=== PATIENT | female | born 1970 | race Caucasian/White ===

== ENCOUNTER 2017-02-09 01:14 | Emergency (ER) | payer BC ==
[~2017-02-09] VITALS: Ht 162.6 cm; Wt 78.4 kg
[~2017-02-09 01:14] MED LIST: ATV5 PO; TRAZ50TA35 PO
[2017-02-09 01:23] VITALS: TEMP 36.4; Ht 162.6 cm; Wt 78.4 kg
[2017-02-09] MEDS ORDERED: ONDANSETRON INJ 2 MG/ML 2 ML VIAL IV STA ×2 (01:35→04:34)
[2017-02-09] MEDS ORDERED: MoRPHine SULFATE 10 MG/ML CARP/VIAL IV STA (01:35)
[2017-02-09] MEDS ORDERED: SODIUM CHLORIDE 0.9% 1000ML 1,000 ML IV ONE (01:45)
[2017-02-09 02:00] LABS: BASO % 0.3 %; BASO ABS # 0.02 K/uL (0-0.2); COMPLETE YES; EOS % 2.4 %; HEMATOCRIT 36.3 % (37-47); IG% 0.1 %; LYMPH % 24.7 %; LYMPH ABS # 1.72 K/uL (1.2-3.4); MEAN CELL VOLUME 88.5 fL (80-100); MEAN CORPUSCULAR HEMOGLOBIN 29.3 pg (25-34); MEAN CORPUSCULAR HGB CONC 33.1 g/dl (32-36); MEAN PLATELET VOLUME 8.8 fL (7.4-10.4); MONO % 7.9 %; NEUT % 64.6 %; PLATELET COUNT 261 K/uL (130-400); WHITE BLOOD COUNT 6.96 K/uL (4.8-10.8)
[2017-02-09] MEDS ORDERED: FENTANYL CITRATE INJ 50 MCG/1 ML 2 ML VIAL IV ONE ×2 (02:00→02:30)
[2017-02-09 02:17] LABS: BUN/CREATININE RATIO 15.1 (10-20); CREATININE 0.67 mg/dl (0.60-1.20); POTASSIUM 3.2 mmol/L (3.5-5.1)
[2017-02-09 02:20] LABS: ALB/GLOB RATIO 1.3 (0.9-2)
[2017-02-09 02:38] LABS: URINE APPEARANCE CLEAR (CLEAR); URINE BILIRUBIN NEG (NEG); URINE COLOR YELLOW; URINE EPITHELIAL CELL AUTO >30 /lpf (0-5); URINE NITRITE NEG (NEG); URINE PH 7.5 (4.5-7.5); URINE SPECIFIC GRAVITY 1.019 (1.000-1.030); UROBILINOGEN NEG (NEG); ZZUR CULT IF INDIC CLEAN CATCH YES
[2017-02-09 02:38] LABS: PREG INTERNAL NEGATIVE QC NEG CLEAR BACKGROUND; PREG INTERNAL POSITIVE QC POS CONTROL LINE
[2017-02-09 02:39] LABS: MANUAL MICROSCOPIC REQUIRED? NO; REVIEW REQ? YES
[2017-02-09] MEDS ORDERED: KETOROLAC TROMETHAMINE 30 MG/ML VIAL IV STA (02:43)
[2017-02-09] MEDS ORDERED: LORA-741 PO (02:49)
[2017-02-09] MEDS ORDERED: LORAZEPAM 2 MG/ML 1 ML VIAL IV STA (03:02)
[2017-02-09] MEDS ORDERED: HYDROmorphone INJ 0.5 MG/0.5 ML SYR IV STA (03:02)
[2017-02-09] MEDS ORDERED: ONDANSETRON INJ 2 MG/ML 2 ML VIAL ONE (04:49)
[2017-02-09] MEDS ORDERED: PROMETHAZINE HCL INJ 12.5 MG in SODIUM CHLORIDE 0.9% 50ML 50 ML IV STA (06:19)
--- NOTE | 2017-02-09 06:43 | EMERGENCY ROOM VISIT NOTE ---
History First contact with patient: 01:32 Chief Complaint: ABDOMINAL PAIN Stated Complaint: PAIN Nursing Triage Summary: Pt reports that at 2300 she developed severe right lower quadrant abdominal pain. Pain worsened and radiates into right back. Upon arrival to room to moaning in pain and thrashing in bed. Pt diaphoretic and clutching right abdomen. History of Present Illness The patient is a 47 year old female who presents to the Emergency Room with complaints of severe right flank pain that began approximately 2 and half hours prior to arrival. The patient states that the pain radiates from her back into her right lower quadrant. She is nauseated without vomiting. She has not had fever or chills. No recent travel history. The patient considers herself usually healthy without symptoms of this in the past. She has been eating, drinking, and using the bathroom is normal. She denies chance of . Review of Systems More than 10 systems were reviewed and otherwise negative with the exception of history of present illness. Past Medical/Surgical History No chronic medical disease Family History No pertinent family history Social History Smoking Status: Former Smoker Housing Status: lives with family Current/Historical Medications Scheduled PRN Lorazepam (Ativan), 0.5 MG PO Q6H PRN for Anxiety Allergies Coded Allergies: Kiwi (Verified Allergy, Mild, HIVES, 02/09/17) Physical Exam Vital Signs Date Time Temp Pulse Resp B/P (MAP) Pulse Ox O2 Delivery O2 Flow Rate FiO2 02/09/17 06:46 77 20 126/73 95 Room Air 02/09/17 06:46 57 18 126/73 97 Room Air 02/09/17 04:20 72 20 126/83 93 Room Air 02/09/17 03:09 64 22 163/95 98 Room Air 02/09/17 02:28 65 18 118/105 100 Room Air 02/09/17 01:23 36.4 69 19 158/82 96 Room Air Physical Exam VITALS: Vitals are noted on the nurse's note and reviewed by myself. Vital signs stable. GENERAL: White female who appears in severe discomfort. She is pacing in the emergency department room HEAD: Normocephalic atraumatic. HEART: Regular rate and rhythm without murmurs gallops or rubs. LUNGS: Clear to auscultation bilaterally without wheezes, rales or rhonchi. No retractions or accessory muscle use. ABDOMEN: Positive normal bowel sounds x 4. Soft, nontender, without masses or organomegaly. No guarding or rebound tenderness. No CVA tenderness. MUSCULOSKELETAL: No muscle atrophy, erythema, or edema noted. Full range of motion without joint tenderness in all extremities. Medical Decision & Procedures ER Provider Diagnostic Interpretation: Preliminary Findings Only See Final Report For Complete Findings US PELVIC/ENDOVAG: Correlate with the earlier noncontrast CT. Assuming negative test. Suspected bicornuate uterus. The endometrium in the right horn appears complex with internal fluid/heterogeneity, measuring up to 1 cm. Recommend followup after menses. The right and left ovaries are symmetric in appearance with internal vascular flow. No adnexal cysts or masses. Trace amount of free fluid in cul-de-sac may be physiologic. Preliminary Findings Only See Final Report For Complete Findings CT ABDOMEN & PELVIS: Small fat-containing abdominal wall hernia immediately superior to the umbilicus with mild fat stranding. Fat strangulation is a consideration. No bowel involvement. No urolithiasis. No hydronephrosis. Appendix is normal. Small amount of free fluid in the pelvis, likely physiologic. No free air. No evidence of bowel obstruction. Gallbladder is surgically absent. Liver, pancreas, spleen, and adrenals are unremarkable on noncontrast exam. Mild generalized mesenteric fat stranding. Nonspecific but can be seen with mesenteric panniculitis. Scattered bibasilar atelectasis. Laboratory Results 02/09/17 01:50 Red Blood Count 4.10, Mean Corpuscular Volume 88.5, Mean Corpuscular Hemoglobin 29.3, Mean Corpuscular Hemoglobin Concent 33.1, Mean Platelet Volume 8.8, Neutrophils (%) (Auto) 64.6, Lymphocytes (%) (Auto) 24.7, Monocytes (%) (Auto) 7.9, Eosinophils (%) (Auto) 2.4, Basophils (%) (Auto) 0.3, Neutrophils # (Auto) 4.49, Lymphocytes # (Auto) 1.72, Monocytes # (Auto) 0.55, Eosinophils # (Auto) 0.17, Basophils # (Auto) 0.02 02/09/17 01:50 Test 02/09/17 01:50 02/09/17 02:15 02/09/17 04:06 White Blood Count 6.96 K/uL (4.8-10.8) Red Blood Count 4.10 M/uL (4.2-5.4) Hemoglobin 12.0 g/dL (12.0-16.0) Hematocrit 36.3 % (37-47) Mean Corpuscular Volume 88.5 fL (80-100) Mean Corpuscular Hemoglobin 29.3 pg (25-34) Mean Corpuscular Hemoglobin Concent 33.1 g/dl (32-36) Platelet Count 261 K/uL (130-400) Mean Platelet Volume 8.8 fL (7.4-10.4) Neutrophils (%) (Auto) 64.6 % Lymphocytes (%) (Auto) 24.7 % Monocytes (%) (Auto) 7.9 % Eosinophils (%) (Auto) 2.4 % Basophils (%) (Auto) 0.3 % Neutrophils # (Auto) 4.49 K/uL (1.4-6.5) Lymphocytes # (Auto) 1.72 K/uL (1.2-3.4) Monocytes # (Auto) 0.55 K/uL (0.11-0.59) Eosinophils # (Auto) 0.17 K/uL (0-0.5) Basophils # (Auto) 0.02 K/uL (0-0.2) RDW Standard Deviation 40.2 fL (36.4-46.3) RDW Coefficient of Variation 12.5 % (11.5-14.5) Immature Granulocyte % (Auto) 0.1 % Immature Granulocyte # (Auto) 0.01 K/uL (0.00-0.02) Anion Gap 9.0 mmol/L (3-11) Est Creatinine Clear Calc Drug Dose 107.5 ml/min Estimated GFR () 123.0 Estimated GFR (Non- 106.2 BUN/Creatinine Ratio 15.1 (10-20) Calcium Level 8.0 mg/dl (8.5-10.1) Total Bilirubin 0.2 mg/dl (0.2-1) Aspartate Amino Transf (AST/SGOT) 13 U/L (15-37) Alanine Aminotransferase (ALT/SGPT) 22 U/L (12-78) Alkaline Phosphatase 59 U/L (45-117) Total Protein 6.4 gm/dl (6.4-8.2) Albumin 3.6 gm/dl (3.4-5.0) Globulin 2.8 gm/dl (2.5-4.0) Albumin/Globulin Ratio 1.3 (0.9-2) Lipase 116 U/L (73-393) Human Chorionic Gonadotropin, Qual NEG (NEG) Urine Color YELLOW Urine Appearance CLEAR (CLEAR) Urine pH 7.5 (4.5-7.5) Urine Specific Athena 1.019 (1.000-1.030) Urine Protein NEG (NEG) Urine Glucose (UA) NEG (NEG) Urine Ketones NEG (NEG) Urine Occult Blood TRACE (NEG) Urine Nitrite NEG (NEG) Urine Bilirubin NEG (NEG) Urine Urobilinogen NEG (NEG) Urine Leukocyte Esterase TRACE (NEG) Urine WBC (Auto) 10-30 /hpf (0-5) Urine RBC (Auto) 0-4 /hpf (0-4) Urine Hyaline Casts (Auto) 0 /lpf (0-5) Urine Epithelial Cells (Auto) >30 /lpf (0-5) Urine Bacteria (Auto) 1+ (NEG) Urine Renal Epithelial Cells /lpf (0-5) Urine Sperm (Auto) Urine Test NEG (NEG) Lactic Acid Level 1.4 mmol/L (0.4-2.0) Medications Administered Medications (Trade) Dose Ordered Sig/Breezy Route Start Time Stop Time Status Last Admin Dose Admin Morphine Sulfate (MoRPHine SULFATE INJ) 8 mg NOW STAT IV 02/09/17 01:35 02/09/17 01:37 DC 02/09/17 01:40 8 MG Sodium Chloride 1,000 ml @ 999 mls/hr Q1H1M ONCE IV 02/09/17 01:45 02/09/17 02:45 DC 02/09/17 01:41 999 MLS/HR Ondansetron HCl (Zofran Inj) 4 mg NOW STAT IV 02/09/17 01:35 02/09/17 01:37 DC 02/09/17 01:41 4 MG Fentanyl Citrate (Fentanyl Inj) 50 mcg NOW ONCE IV 02/09/17 02:00 02/09/17 02:01 DC 02/09/17 01:58 50 MCG Fentanyl Citrate (Fentanyl Inj) 50 mcg NOW ONCE IV 02/09/17 02:30 02/09/17 02:31 DC 02/09/17 02:30 50 MCG Ketorolac Tromethamine (Toradol Inj) 30 mg NOW STAT IV 02/09/17 02:43 02/09/17 02:44 DC 02/09/17 02:58 30 MG Hydromorphone HCl (Dilaudid Inj) 0.5 mg NOW STAT IV 02/09/17 03:02 02/09/17 03:03 DC 02/09/17 03:12 0.5 MG Lorazepam (Ativan Inj) 0.5 mg NOW STAT IV 02/09/17 03:02 02/09/17 03:03 DC 02/09/17 03:11 0.5 MG Ondansetron HCl (Zofran Inj) 4 mg STK-MED ONCE .ROUTE 02/09/17 04:49 02/09/17 04:50 DC 02/09/17 04:37 4 MG Promethazine HCl 12.5 mg/Sodium Chloride 50.5 ml @ 204 mls/hr NOW STAT IV 02/09/17 06:19 02/09/17 06:33 DC 02/09/17 06:43 204 MLS/HR ED Course Physical exam and history were performed. Nursing notes and EMR were reviewed. Patient appears to have severe flank/abdominal pain for the past few hours. The patient appears quite comfortable on examination. IV access was established and labs were obtained. The patient was initially given IV morphine , but this did not improve her symptoms. She was given multiple doses of fentanyl, and was still unable to stay comfortable long enough to have a CT scan performed. She was able to get a urine that did not show evidence of , and she finally got relief after IV Toradol, IV Dilaudid, and IV Ativan. The patient's blood work is as above and was reviewed. She does not have a significantly elevated white blood cell count, gross anemia, bandemia, or significant electrolyte imbalance or lipase and transaminases are nondiagnostic. Lactic acid is negative. The patient CT scan is as above and shows a possible fat-containing abdominal wall hernia with possible strangulate. There is also generalized mesenteric fat stranding. On repeat abdominal exam the patient did have improvement of her pain, but certainly does not have any periumbilical or midline abdominal tenderness or mass. She does have some slight right lower quadrant tenderness on palpation. Because of the extreme level of her pain I did elect to perform an ultrasound, which is as above and does not show acute findings. On repeat exam after the ultrasound the patient was found to be vomiting actively in her room. She was given 12.5 mg IV Phenergan, which is running at the time of this dictation. The patient remained in stable condition until the time of shift change. The case was discussed with Darleen Madsen PA-C, who will assume care at this time. Please see Ms. Cale's dictation for further patient course, plan, and disposition. The chart was completed utilizing [employer] Speech Voice Recognition Software. Grammatical errors, random word insertions, pronoun errors, and incomplete sentences are an occasional consequence of this system due to software limitations, ambient noise, and hardware issues. Any formal questions or concerns about the content, text, or information contained within the body of this dictation should be directly addressed to the provider for clarification. . Medical Decision Differential diagnosis: Etiologies such as mesenteric ischemia, ovarian torsion, [employer] etiology, ectopic , appendicitis, diverticulitis, PUD, biliary pathology, UTI, pancreatitis, obstruction, mesenteric ischemia, aortic pathology, infections, inflammatory bowel disease, renal colic, as well as others were entertained. Impression Primary Impression: Abdominal pain Additional Impression: Nausea and vomiting Departure Information Referrals Ortiz Tellez M.D. (PCP) Patient Instructions My [facility] Problem Qualifiers
--- NOTE | 2017-02-09 06:45 | DIAGNOSTIC IMAGING REPORT ---
PELVIC ULTRASOUND, TRANSABDOMINAL AND TRANSVAGINAL HISTORY: Pain. Nausea. RLQ abd pain. Negative Guilherme COMPARISON: None. FINDINGS: Uterus: Midline. I corner configuration. Endometrial stripe: Somewhat prominent at 10 mm. Right ovary: Normal in size and demonstrates normal color flow. Left ovary: Normal in size and demonstrates normal color flow. Miscellaneous:No pelvic free fluid. IMPRESSION: Bicornuate uterus. Slight endometrial prominence. Otherwise negative study. Electronically signed by: Ortiz Riley M.D. 02/09/2017 6:44 AM Dictated Date/Time: 02/09/2017 6:43 AM
--- NOTE | 2017-02-09 07:03 | DIAGNOSTIC IMAGING REPORT ---
ABDOMEN AND PELVIS CT WITHOUT CONTRAST CT DOSE: 444.23 mGy.cm HISTORY: Flank pain Right flank into RLQ abd pain TECHNIQUE: Multiaxial CT images of the abdomen and pelvis were performed without contrast. COMPARISON STUDY: None. FINDINGS: The lung bases are clear. The unenhanced liver, spleen, gallbladder, pancreas, kidneys, and adrenal glands are within normal limits. No bowel wall thickening or obstruction. The pelvic organs are unremarkable. No suspicious lytic or blastic osseous lesions. Small fat-containing periumbilical hernia. No evidence for an obstructive pattern. Cholecystectomy. Uterus is anteflexed. IMPRESSION: 1. No acute process the abdomen or pelvis post cholecystectomy. 2. Small periumbilical fat-containing hernia. Electronically signed by: Ortiz Riley M.D. 02/09/2017 7:02 AM Dictated Date/Time: 02/09/2017 6:59 AM
--- NOTE | 2017-02-09 07:24 | EMERGENCY ROOM VISIT NOTE ---
ED Visit Note First contact with patient: 07:04 The patient was signed out to me at shift change by Federico Valencia PA-C. Please see his dictation for details and hospital course. Briefly, the patient presented for severe abdominal pain. She underwent the above evaluation. There is question of strangulation surrounding the abdominal wall hernia. There were no other acute findings. The patient had received multiple doses of antiemetics and pain medication. At the time of sign out, the patient had had additional emesis and was given Phenergan. When I reassessed her she was resting comfortably and stated she wanted to go home. She did not wish to stay in the hospital. She did not wish to have any pain medication at home. She will be given a take-home pack of Zofran. She should return to the ER with any worsening symptoms. Otherwise, she should follow-up with her family doctor in the next several days.
[2017-02-09] MEDS ORDERED: ONDANSETRON HOME PACK 4MG OD TAB PO ONE (07:30)
[2017-02-09 07:35] VITALS: BP 126/75; PULSE 71; O2SAT 99
== END 2017-02-09 07:48 | disposition home or self-care (01) ==
LOC: C.EDB 01:15
DX: R10.31 Right lower quadrant pain (principal); R11.2 Nausea with vomiting, unspecified; Z87.891 Personal history of nicotine dependence